=== PATIENT | female | born 1955 | race Caucasian/White ===

== ENCOUNTER 2017-02-19 06:50 | Emergency (ER) | payer MEDICARE, MEDICAID ==
[~2017-02-19] VITALS: Ht 162.6 cm; Wt 65.2 kg
[~2017-02-19 06:50] MED LIST: OXYC15TA60 PO
[2017-02-19] MEDS ORDERED: SODIUM CHLORIDE 0.9% 1,000 ML IV ONE (07:00)
[2017-02-19] MEDS ORDERED: MORPHINE SULFATE 4 MG/ML, 1ML IVPush PRN (07:00)
[2017-02-19] MEDS ORDERED: LORazepam 2 MG/ML, 1ML IVP ONE (07:00)
[2017-02-19] MEDS ORDERED: KETOROLAC 30 MG/1 ML IVPush ONE (07:00)
[2017-02-19] MEDS ORDERED: DILTIAZEM 125 MG in DEXTROSE 5% 100 ML IV SCH (07:07)
[2017-02-19] MEDS ORDERED: ASPIRIN 81 MG TABLET CHEW PO ONE (07:30)
[2017-02-19] MEDS ORDERED: DILTIAZEM 5 MG/ML, 5ML IV ONE (07:30)
[2017-02-19] MEDS ORDERED: LORazepam 2 MG/ML, 1ML ONE (07:34)
[2017-02-19] MEDS ORDERED: ASPIRIN 81 MG TABLET CHEW ONE (07:35)
[2017-02-19] MEDS ORDERED: KETOROLAC 30 MG/1 ML ONE (07:35)
[2017-02-19] MEDS ORDERED: DILTIAZEM 5 MG/ML, 5ML ONE (07:35)
[2017-02-19] MEDS ORDERED: MORPHINE SULFATE 4 MG/ML, 1ML ONE (07:35)
[2017-02-19 07:42] LABS: ASPARTATE AMINO TRANSFERASE 55 U/L (15-37); BLOOD UREA NITROGEN 14 mg/dL (7-18)
[2017-02-19 07:53] LABS: IS PT STATUS REG ER OR PRE ER? YES
[2017-02-19] MEDS ORDERED: MAGNESIUM SULFATE 1 GM in SODIUM CHLORIDE 0.9% 50 ML IV ONE (08:00)
[2017-02-19 08:06] LABS: DAU SCREEN DISCLAIMER
[2017-02-19 08:10] LABS: PATH.CAST-FLAG NOT PRESENT; SPERM-FLAG NOT PRESENT; SRC-FLAG NOT PRESENT; XTAL-FLAG NOT PRESENT; YLC-FLAG NOT PRESENT
[2017-02-19] MEDS ORDERED: LORazepam 1MG TABLET ONE (09:07)
[2017-02-19 09:14] VITALS: BP 112/74
[2017-02-19] MEDS ORDERED: LORazepam 1MG TABLET PO ONE (09:30)
== END 2017-02-19 09:51 | disposition home or self-care (01) ==
LOC: ED 07:07
DX: I48.0 Paroxysmal atrial fibrillation (principal); J44.9 Chronic obstructive pulmonary disease, unspecified; E03.9 Hypothyroidism, unspecified; M06.9 Rheumatoid arthritis, unspecified; F43.10 Post-traumatic stress disorder, unspecified
CPT/HCPCS: 36415; 71010; 80053; 80307; 81001; 83605; 83735; 84484; 85025; 85610; 87040; 87086; 93005; 96361; 96374; 96375; 99285; J1885; J2060; J7030

== ENCOUNTER 2017-04-08 10:50 | Emergency (ER) | payer MEDICARE, MEDICAID ==
[~2017-04-08] VITALS: Ht 165.1 cm; Wt 65.6 kg
[2017-04-08] MEDS ORDERED: GABA800T2 PO (11:29)
[2017-04-08] MEDS ORDERED: HYDR-3341 PO (11:29)
[2017-04-08] MEDS ORDERED: ASPI325T80 PO (11:29)
[2017-04-08] MEDS ORDERED: METO200T3 PO (11:29)
[2017-04-08] MEDS ORDERED: FLUO10CA13 PO (11:29)
[2017-04-08] MEDS ORDERED: LEVO25TA4 PO (11:29)
[2017-04-08] MEDS ORDERED: ATOR-2 PO (11:29)
[2017-04-08] MEDS ORDERED: AMOXICILLIN/CLAV 875-125MG TABLET PO ONE (12:00)
[2017-04-08 12:03] VITALS: BP 114/52
[2017-04-08] MEDS ORDERED: IBUPROFEN 200 MG TABLET ONE (12:12)
[2017-04-08] MEDS ORDERED: IBUPROFEN 200 MG TABLET PO ONE (12:30)
== END 2017-04-08 13:12 | disposition home or self-care (01) ==
LOC: ED 11:50
DX: L03.115 Cellulitis of right lower limb (principal); J44.9 Chronic obstructive pulmonary disease, unspecified; E03.9 Hypothyroidism, unspecified; I48.91 Unspecified atrial fibrillation
CPT/HCPCS: 93005; 99284

== ENCOUNTER 2017-05-01 16:22 | Emergency (ER) | payer MEDICARE, MEDICAID ==
[~2017-05-01] VITALS: Ht 165.1 cm; Wt 64.6 kg
[~2017-05-01 16:22] MED LIST changes: +ASPI325T80 PO; +ATOR-2 PO; +FLUO10CA13 PO; +GABA800T2 PO; +HYDR-3341 PO; +LEVO25TA4 PO; +METO200T3 PO
[2017-05-01 17:57] VITALS: BP 102/62
[2017-05-01] MEDS ORDERED: ACETAMINOPHEN 500 MG TABLET ONE (18:29)
[2017-05-01] MEDS ORDERED: ACETAMINOPHEN 500 MG TABLET PO ONE (18:30)
== END 2017-05-01 19:04 | disposition home or self-care (01) ==
LOC: ED 18:24
DX: S86.911A Strain of unspecified muscle(s) and tendon(s) at lower leg level, right leg, initial encounter (principal); S86.912A Strain of unspecified muscle(s) and tendon(s) at lower leg level, left leg, initial encounter; R60.0 Localized edema; M25.512 Pain in left shoulder; J44.9 Chronic obstructive pulmonary disease, unspecified; F43.10 Post-traumatic stress disorder, unspecified; E03.9 Hypothyroidism, unspecified; X50.1XXA Overexertion from prolonged static or awkward postures, initial encounter; Y93.89 Activity, other specified; Y92.038 Other place in apartment as the place of occurrence of the external cause; Y99.8 Other external cause status; Z87.891 Personal history of nicotine dependence
CPT/HCPCS: 93005; 99283

== ENCOUNTER 2019-08-11 16:53 | Emergency (ER) | payer MEDICARE, MEDICAID ==
[~2019-08-11] VITALS: Ht 162.6 cm; Wt 65.0 kg
[~2019-08-11 16:53] MED LIST changes: -GABA800T2 PO; +GABA800T5 PO; -METO200T3 PO; +METO200T47 PO
[2019-08-11 16:56] VITALS: BP 111/45
--- NOTE | 2019-08-11 17:10 | NUR ---
PT STATES HER SON MADE HER COME IN FOR MULTIPLE ISSUES, PT WITH BACK PAIN, R SHOULDER PAIN AND "PROBLEMS WITH HER TONGUE WHEN SHE YAWNS". PT STATES SHE WOULD LIKE THREE XRAYS DONE OF THESE AREAS. PT WITH NO C/O CP, SOB.
== END 2019-08-11 19:20 | disposition home or self-care (01) ==
LOC: ED 19:14
DX: M25.511 Pain in right shoulder (principal); H92.02 Otalgia, left ear; I10 Essential (primary) hypertension; M06.9 Rheumatoid arthritis, unspecified; E03.9 Hypothyroidism, unspecified; J44.9 Chronic obstructive pulmonary disease, unspecified; I48.91 Unspecified atrial fibrillation; J45.909 Unspecified asthma, uncomplicated; Z87.891 Personal history of nicotine dependence
CPT/HCPCS: 99283

== ENCOUNTER 2020-07-12 12:22 | Emergency (ER) | payer MEDICARE, MEDICAID ==
[~2020-07-12] VITALS: Ht 162.6 cm; Wt 65.0 kg
--- NOTE | 2020-07-12 12:33 | NUR ---
PT BIB EMS FOR FLU LIKE SYMPTOMS STARTING A FEW DAYS AGO. PT HAS CO FEVER, CHILLS, MENDOZA, BODY ACHES, SORE THROAT. PT NOT IN RESP DISTRESS. DENIES CP. VSS, CALL LIGHT IN REACH.
--- NOTE | 2020-07-12 12:46 | NUR ---
REPORT FROM GAURAV FERRARO. ASSUMING PRIMARY CARE OF PT.
--- NOTE | 2020-07-12 12:49 | NUR ---
PT NEEDING TO VOID. RN UNHOOKED PT FROM MONITOR. PT AMBULATED TO RESTROOM WITH A STEADY GAIT.
--- NOTE | 2020-07-12 13:08 | NUR ---
PT ABLE TO PROVIDE RN WITH A URINE SAMPLE. COLLECTED AND SENT TO LAB. PT LYING ON GURNEY EATING CRACKERS. RN TO ADMINISTER MEDICATION PER EMAR.
[2020-07-12] MEDS ORDERED: GABAPENTIN 400 MG CAPSULE ONE (13:10)
[2020-07-12 13:19] LABS: MICROSCOPIC AUTO
[2020-07-12 13:22] LABS: BASOPHILS % (AUTO) 1 % (0-1); EOSINOPHILS % (AUTO) 3 % (1-7); LYMPHOCYTES % (AUTO) 13 % (22-44); MEAN CORPUSCULAR HGB CONC 33.1 g/dL (32.4-35.8); MEAN PLATELET VOLUME 9.1 fL (7.4-10.4); MONOCYTES % (AUTO) 7 % (2-9); NEUTROPHILS % (AUTO) 77 % (42-75); PLATELET COUNT 204 x10^3/uL (130-400); RED BLOOD COUNT 4.18 x10^6/uL (3.82-5.3); RED CELL DISTRIBUTION WIDTH 13.5 % (9.6-15.2)
[2020-07-12 13:29] LABS: MD NO
[2020-07-12] MEDS ORDERED: GABAPENTIN 300 MG CAPSULE PO ONE (13:30)
[2020-07-12 13:38] LABS: ALBUMIN 3.3 g/dL (3.4-5.0); CALCIUM 8.6 mg/dL (8.5-10.1); CREATININE 1.02 mg/dL (0.55-1.02)
[2020-07-12 13:47] LABS: ANION GAP 4 mmol/L (5-15); CHLORIDE 109 mmol/L (98-107)
--- NOTE | 2020-07-12 14:08 | NUR ---
REPORT TO TOMAS STEVENSON RN.
[2020-07-12 14:38] VITALS: BP 127/80
--- NOTE | 2020-07-12 14:50 | NUR ---
PT UPSET UPON DC FOR NOT BEING ADMITTED. ONCE PT GOT TO DC DESK SHE ASKED FOR A RHEUMATOID SPECIALIST. PT WAS TOLD SHE NEEDS TO FOLLOW UP WITH HERE PCP OR [facility] FOR [facility]. THEN PT STATES SHE WANTED A RX FOR PAIN MEDS AND GABAPENTIN FOR HER HAND. EXPLAINED TO PT THAT SHE WAS NOT GOING TO GET THAT FROM THE PROVIDERS HERE AND SHE NEEDED TO FOLLOW UP WITH PCP AND [facility]. PT GIVEN TAXI VOUCHER FOR [employer]AF[employer] RIDE HOME.
== END 2020-07-12 14:54 | disposition home or self-care (01) ==
LOC: ED 14:12
DX: J02.8 Acute pharyngitis due to other specified organisms (principal); Z20.828 Contact with and (suspected) exposure to other viral communicable diseases; B97.89 Other viral agents as the cause of diseases classified elsewhere; I10 Essential (primary) hypertension; J44.9 Chronic obstructive pulmonary disease, unspecified; I48.91 Unspecified atrial fibrillation; R05 Cough; E03.9 Hypothyroidism, unspecified; R50.9 Fever, unspecified; M19.90 Unspecified osteoarthritis, unspecified site; Z87.891 Personal history of nicotine dependence
CPT/HCPCS: 36415; 71045; 80048; 81001; 82040; 85025; 87081; 87086; 87147; 87635; 87880; 99284